=== PATIENT | female | born 1960 | race Caucasian/White ===

== ENCOUNTER 2022-12-13 05:24 | Day surgery (SDC) | payer BC, SELFPAY ==
[2022-12-13 05:53] VITALS: BP 106/63; PULSE 74; RESP 18; TEMP 36.9; O2SAT 100; BMI 29.3
[2022-12-13] MEDS: Lactated Ringers 1,000 ML 15 ML IV (06:00)
--- NOTE | 2022-12-13 06:30 | EGD_PTH ---
PATIENT: MAYRA PALUMBO LOC: EN U#:[id number] AGE/SX: 62/F ROOM: RE12/13/[address]: Dr. Norman Narvaez DO : 1960 BED: DIS: 12/13/2022 SPEC #: [id number] RECD: 12/13/22 10:22 STATUS: EVETTE RESofia #: [id number] HAL: 12/13/22 06:[address]: Norman Narvaez DEPT: SURGICAL PATHOLOGY RECD BY: Juju Huang ENTERED: 12/13/22 11:26 SP TYPE: EGD BIOPSY OT DR: Janey Bal PA-C Tissues: A - Esophagus, NOS B - Sigmoid colon biopsy Procedures: Special Stain Group II Surgery Specimen Level IV Alcian Blue/PAS (control) HEADER OPERATION: Colonoscopy, EGD (MAC), biopsy PRE-OP DIAGNOSIS: Acid reflux, dysphagia, screening TISSUE SUBMITTED: A ? Distal esophagus biopsy, B ? Sigmoid polyp biopsy MICROSCOPIC DIAGNOSIS A. Distal esophagus, biopsy: Fragments of gastric mucosa with moderate chronic inflammation. Intestinal metaplasia (goblet cell metaplasia) not identified. See comment. B. Sigmoid polyp, biopsy: Hyperplastic polyp. JUSTIN:kassidy 12/16/2022 COMMENT A. Alcian blue/PAS stain with matched control is used in the evaluation of the specimen. MICROSCOPIC DESCRIPTION Slides are reviewed. GROSS DESCRIPTION A - Received in fixative is one container labeled with the patient's name and designated distal esophagus. The specimen consists of multiple irregular fragments of light jules soft tissue that in aggregate measure 0.8 x 0.4 x 0.1 cm. The specimen is totally submitted in one cassette. B - Received in fixative is one container labeled with the patient's name and designated sigmoid polyp biopsy. The specimen consists of one irregular fragment of light jules soft tissue that measures 0.3 x 0.3 x 0.1 cm. The specimen is totally submitted in one cassette. / JUSTIN:kassidy 12/13/2022 TC:3 CPT: 19063 x2, 16760
--- NOTE | 2022-12-13 06:33 | HP.PCM_ITS ---
History and Physical Date of Admission: 12/13/22 62 F who presents to the office today to establish for dysphagia, acid reflux. No prior EGD or colonoscopy. Because of acid reflux she had to stop drinking coffee. Also stopped black pepper and garlic. Has stopped eating after 6 pm which has helped with reflux. No longer coughs now when she lies down. Jennie Se[place] helps, Pepto Bismol helps. Famotidine helps. She notes her reflux is worse the next day after taking any medication for it, and she doesn't want to have to take something every day. When she took famotidine routinely then her joints hurt more. Hasn't been on a PPI that she recalls. No nausea, vomiting. No abdominal pain. Has difficulty swallowing meat, started about 2 yrs ago, has gotten worse. She cuts food up into tiny pieces, followed by lots of water. Can intermittently have diarrhea, this has been fci. Bowels are more regular off probiotic, almost no diarrhea since stopping the probiotic . Went to an ED in 05/2022 for CP, they ruled out cardiac. Has a diagnosis of possible Sjogren's (Sjogren's antibody negative). Her Piece Maker is Dr Conrad in [place]. She takes hydroxychloroquine. Exam Const General: cooperative, healthy appearing and comfortable Orientation: alert, awake and oriented x3 HENMT Head: normal to inspection Eyes Sclera: sclerae normal Resp Effort & Inspection: normal respiratory effort GI Inspection: normal to inspection Skin General: no jaundice Neuro Gait: normal gait Quality Reporting Tobacco Screening ([facility] 138) Smoking Status: Never smoker Assessment and Plan Assessment and Plan (1) Acid reflux: ?Status:?Acute ?Plan: 62 yr old female with dysphagia and acid reflux. Dysphagia may be from chronic reflux and/or due to ?Sjogren's. Not currently on a PPI, prefers to avoid meds. She will have EGD and colonoscopy to eval for esophagitis, stricture, Clay's and screening colonoscopy F/u office 2 wks later to discuss biopsy results (2) Dysphagia: ?Status:?Acute ?Plan: see above (3) Screening for colon cancer: ?Status:?Acute ?Plan: see above I have examined the patient and the H&P has been reviewed. There are no clinical changes since date of exam.
[2022-12-13 07:05] VITALS: BP 103/65; BP 106/63; PULSE 67; RESP 16; TEMP 36.4; O2SAT 96
[2022-12-13 07:10] VITALS: BP 100/58; BP 106/63; PULSE 67; RESP 16; O2SAT 96
--- NOTE | 2022-12-13 07:13 | OP.EGD_ITS ---
Patient Name: Meenu Gant Procedure Date: 12/13/2022 6:24 AM Date of : 1960 Age: 62 Procedure: Upper GI endoscopy Indications: Heartburn, Suspected esophageal reflux Providers: Norman Narvaez DO Medicines: Monitored Anesthesia Care Patient Profile: This is a 62 year old female. Refer to note in patient chart for documentation of history and physical. Patient has symptoms of chronic heartburn. Complications: No immediate complications. Procedure: Pre-Anesthesia Assessment: - Prior to the procedure, a History and Physical was performed, and patient medications and allergies were reviewed. The risks and benefits of the procedure and the sedation options and risks were discussed with the patient. All questions were answered and informed consent was obtained. Patient identification and proposed procedure were verified by the physician in the pre-procedure area. Mental Status Examination: alert and oriented. Airway Examination: normal oropharyngeal airway and neck mobility. Respiratory Examination: clear to auscultation. CV Examination: normal. Prophylactic Antibiotics: The patient does not require prophylactic antibiotics. Prior Anticoagulants: The patient has taken no previous anticoagulant or antiplatelet agents. ASA Grade Assessment: II - A patient with mild systemic disease. After reviewing the risks and benefits, the patient was deemed in satisfactory condition to undergo the procedure. The anesthesia plan was to use moderate sedation / analgesia (conscious sedation). Immediately prior to administration of medications, the patient was re-assessed for adequacy to receive sedatives. The heart rate, respiratory rate, oxygen saturations, blood pressure, adequacy of pulmonary ventilation, and response to care were monitored throughout the procedure. The physical status of the patient was re-assessed after the procedure. After obtaining informed consent, the endoscope was passed under direct vision. Throughout the procedure, the patient's blood pressure, pulse, and oxygen saturations were monitored continuously. The Colonoscope was introduced through the mouth, and advanced to the second part of duodenum. The upper GI endoscopy was accomplished without difficulty. The patient tolerated the procedure well. Scope In: 6:40:29 AM Scope Out: 6:46:52 AM Total Procedure Duration Time 0 hours 6 minutes 23 seconds Findings: LA Grade B (one or more mucosal breaks greater than 5 mm, not extending between the tops of two mucosal folds) esophagitis with no bleeding was found 37 to 38 cm from the incisors. Biopsies were taken with a cold forceps for histology. Verification of patient identification for the specimen was done. Estimated blood loss was minimal. A small hiatal hernia was present. The cardia and gastric fundus were normal on retroflexion. No other significant abnormalities were identified in a careful examination of the stomach. No gross lesions were noted in the second portion of the duodenum. Impression: - LA Grade B reflux esophagitis. Biopsied. - Small hiatal hernia. - No gross lesions in the second portion of the duodenum. Recommendation: - Discharge patient to home. - Resume previous diet. - Continue present medications. - Await pathology results. Procedure Code(s): --- Professional --- 92423, Esophagogastroduodenoscopy, flexible, transoral; with biopsy, single or multiple CPT copyright 2017 [employer]. All rights reserved. The codes documented in this report are preliminary and upon caul puller review may be revised to meet current compliance requirements. Norman Narvaez DO 12/13/2022 7:12:19 AM This report has been signed electronically. Number of Addenda: 0 Note Initiated On: 12/13/2022 6:24 AM
--- NOTE | 2022-12-13 07:13 | OP.CCLET_ITS ---
12/13/2022 Janey Bal Re : Upper GI endoscopy procedure for Meenu Bal This procedure was performed on Tuesday, December 13, 2022. My impressions and recommendations are as follows: Impressions : - LA Grade B reflux esophagitis. Biopsied. - Small hiatal hernia. - No gross lesions in the second portion of the duodenum. Recommendations : - Discharge patient to home. - Resume previous diet. - Continue present medications. - Await pathology results. My findings are described in the full procedure note, which is enclosed. If I can be of further assistance, please feel free to contact me at . Sincerely, Norman Narvaez, 12/13/2022 7:12:19 AM This report has been signed electronically.
[2022-12-13 07:15] VITALS: BP 106/63; BP 95/69; PULSE 64; RESP 15; O2SAT 96
--- NOTE | 2022-12-13 07:15 | OP.COLON_ITS ---
Patient Name: Meenu Gant Procedure Date: 12/13/2022 6:47 AM Date of : 1960 Age: 62 Procedure: Colonoscopy Indications: Screening for colorectal malignant neoplasm Providers: Norman Narvaez DO Medicines: Monitored Anesthesia Care Patient Profile: This is a 62 year old female. Refer to note in patient chart for documentation of history and physical. Patient has symptoms of chronic heartburn. Last Colonoscopy: none. The patient's first colonoscopy is today. Complications: No immediate complications. Procedure: Pre-Anesthesia Assessment: - Prior to the procedure, a History and Physical was performed, and patient medications and allergies were reviewed. The risks and benefits of the procedure and the sedation options and risks were discussed with the patient. All questions were answered and informed consent was obtained. Patient identification and proposed procedure were verified by the physician in the pre-procedure area. Mental Status Examination: alert and oriented. Airway Examination: normal oropharyngeal airway and neck mobility. Respiratory Examination: clear to auscultation. CV Examination: normal. Prophylactic Antibiotics: The patient does not require prophylactic antibiotics. Prior Anticoagulants: The patient has taken no previous anticoagulant or antiplatelet agents. ASA Grade Assessment: II - A patient with mild systemic disease. After reviewing the risks and benefits, the patient was deemed in satisfactory condition to undergo the procedure. The anesthesia plan was to use moderate sedation / analgesia (conscious sedation). Immediately prior to administration of medications, the patient was re-assessed for adequacy to receive sedatives. The heart rate, respiratory rate, oxygen saturations, blood pressure, adequacy of pulmonary ventilation, and response to care were monitored throughout the procedure. The physical status of the patient was re-assessed after the procedure. After I obtained informed consent, the scope was passed under direct vision. Throughout the procedure, the patient's blood pressure, pulse, and oxygen saturations were monitored continuously. The Colonoscope was introduced through the anus and advanced to the cecum, identified by appendiceal orifice and ileocecal valve. The colonoscopy was performed without difficulty. The patient tolerated the procedure well. The quality of the bowel preparation was good. Scope In: 6:49:37 AM Scope Withdrawal Time 0 hours 8 minutes 25 seconds Scope Out: 7:02:51 AM Total Procedure Duration Time 0 hours 13 minutes 14 seconds Findings: The perianal and digital rectal examinations were normal. A few small-mouthed diverticula were found in the recto-sigmoid colon and sigmoid colon. A 2 mm polyp was found in the sigmoid colon. The polyp was sessile. The polyp was removed with a jumbo cold forceps. Resection and retrieval were complete. The exam was otherwise without abnormality on direct and retroflexion views. Impression: - Diverticulosis in the recto-sigmoid colon and in the sigmoid colon. - One 2 mm polyp in the sigmoid colon, removed with a jumbo cold forceps. Resected and retrieved. - The examination was otherwise normal on direct and retroflexion views. Recommendation: - Discharge patient to home. - Resume previous diet. - Continue present medications. - Await pathology results. - Repeat colonoscopy in 5 years for surveillance. Procedure Code(s): --- Professional --- 15348, Colonoscopy, flexible; with biopsy, single or multiple CPT copyright 2017 [employer]. All rights reserved. The codes documented in this report are preliminary and upon director of operations for therapy review may be revised to meet current compliance requirements. Norman Narvaez DO 12/13/2022 7:15:03 AM This report has been signed electronically. Number of Addenda: 0 Note Initiated On: 12/13/2022 6:47 AM
--- NOTE | 2022-12-13 07:15 | OP.CCLET_ITS ---
12/13/2022 Janey Bal Re : Colonoscopy procedure for Meenu Bal This procedure was performed on Tuesday, December 13, 2022. My impressions and recommendations are as follows: Impressions : - Diverticulosis in the recto-sigmoid colon and in the sigmoid colon. - One 2 mm polyp in the sigmoid colon, removed with a jumbo cold forceps. Resected and retrieved. - The examination was otherwise normal on direct and retroflexion views. Recommendations : - Discharge patient to home. - Resume previous diet. - Continue present medications. - Await pathology results. - Repeat colonoscopy in 5 years for surveillance. My findings are described in the full procedure note, which is enclosed. If I can be of further assistance, please feel free to contact me at . Sincerely, Norman Friend, 12/13/2022 7:15:03 AM This report has been signed electronically.
[2022-12-13 07:20] VITALS: BP 105/72; BP 106/63; PULSE 64; RESP 16; TEMP 36.3; O2SAT 97
[2022-12-13 07:55] VITALS: BP 106/63
== END 2022-12-13 08:11 | disposition home or self-care (01) ==
LOC: EN 05:26 → AC 05:29
PROVIDERS: PCP Family Medicine; Referring Provider Family Medicine; Visit Provider Internal Medicine Gastroenterology
PROC: 0DJD8ZZ Inspection of Lower Intestinal Tract, Via Natural or Artificial Opening Endoscopic (ICD-10-PCS; CPT 45378; principal; 2022-12-13 06:25)
DX: Z12.11 Encounter for screening for malignant neoplasm of colon (principal); K21.00 Gastro-esophageal reflux disease with esophagitis, without bleeding; K44.9 Diaphragmatic hernia without obstruction or gangrene; K57.30 Diverticulosis of large intestine without perforation or abscess without bleeding; K63.5 Polyp of colon
CPT/HCPCS: 45380; 43239; 88305; 88313; J7120; J2405

== ENCOUNTER → 2023-12-17 | Outpatient (CLI) | payer OTHER, SELFPAY ==
[2023-12-17 17:17] LABS: ALB/GLOB Ratio 1.1 RATIO (0.9-2.4); AST(SGOT) 18 U/L (15-37); Alanine Aminotransfer ALT/SGPT 28 U/L (13-56); Albumin, Serum 3.8 g/dL (3.2-5.0); Alkaline Phosphatase 58 U/L (45-117); Anion Gap 8 (5-15); BUN 11 mg/dL (7-18); BUN/Creat Ratio 11.8 RATIO (10-20); Calcium,Total 9.3 mg/dL (8.5-10.1); Chloride 106 mmol/L (98-107); Cholesterol 226 mg/dL (200); Creatinine, Serum 0.94 mg/dL (0.55-1.02); EST Glomerular Filtration Rate 65 mL/min (>60); Est Glom Filt Rate - Afr Amer 78 mL/min (>60); Globulin 3.4 g/dL (2.2-4.2); Glucose 96 mg/dL (74-106); High Density Lipoprotein 56 mg/dL; Potassium 4.1 mmol/L (3.5-5.1); Protein, Total 7.2 g/dL (6.4-8.2); Sodium Level 141 mmol/L (136-145); Triglycerides 181 mg/dL; Very Low Density Lipoprotein 36 mg/dL (5-40)
[2023-12-17 17:20] LABS: Erythrocyte Sedimentation Rate 4 mm/hr (0-30)
--- OUTSIDE RECORDS SUMMARY | 2023-12-17 22:11 | XMS RPT_ITS | CCD ---
Author Name Unknown Address [address] [place] [address] Organization [facility] Care Team Providers Care Baggage Inspector Name Role Phone JACOB HAYWOOD Referring Unavailable JACOB HAYWOOD Consulting Unavailable EVETTE SPENCE MD Admitting Unavailable EVETTE SPENCE MD Attending Unavailable EVETTE SPENCE MD Primary Care Unavailable PROVIDER, UNKNOWN Consulting Unavailable JACOB HAYWOOD Admitting Unavailable JACOB HAYWOOD Attending Unavailable JACOB HAYWOOD Primary Care Unavailable JACOB HAYWOOD Consulting Unavailable PROVIDER, UNKNOWN Consulting Unavailable BISHNU PAT Admitting Unavailable BISHNU PAT Attending Unavailable ADILIA BISHNU Primary Care Unavailable DOT HAYWOODBERLY Consulting Unavailable PROVIDER, UNKNOWN Consulting Unavailable BISHNU PAT Attending Unavailable JACOB VIVEROS Primary Care Unavailable ADILIA BISHNU Admitting Unavailable BISHNU PAT Attending Unavailable ADILIA BISHNU Admitting Unavailable ADILIA, BISHNU Primary Care Unavailable Allergies Allergy Classification Reported Allergen(s) Allergy Type Date of Onset Reaction(s) Facility (1 source) Penicillins Drug allergy (disorder) [facility] (1 source) Sulfonamides (Antibiotic) Drug allergy (disorder) [facility] Problems Problem Classification Problem Date Documented Date Episodic/Chronic Nutritional deficiencies (3 sources) Vitamin D deficiency, unspecified; Translations: [Vitamin D deficiency, unspecified] Onset: 05-09-2022 Chronic Osteoarthritis (1 source) Primary generalized (osteo)arthritis; Translations: [Primary generalized (osteo)arthritis] Onset: 05-09-2022 Chronic Other connective tissue disease (1 source) Other specified enthesopathies of right lower limb, excluding foot; Translations: [Other specified enthesopathies of right lower limb, excluding foot] Onset: 05-09-2022 Episodic Systemic lupus erythematosus and connective tissue disorders (2 sources) Systemic involvement of connective tissue, unspecified; Translations: [SYSTEMIC INVLV CONNECTIVE TISS UNS] Onset: 05-14-2023 Chronic Results Test Name Value Interpretation Reference Range Facil ity Encounters Encounter Date Encounter Type Care Provider Facility Start: 05-13-2023 End: 05-14-2023 ambulatory [facility] Start: 10-30-2022 End: 10-31-2022 ambulatory [facility] Start: 05-20-2022 End: 05-21-2022 ambulatory [facility] Start: 05-09-2022 End: 05-09-2022 ambulatory [facility] Start: 08-16-2021 End: 08-16-2021 ambulatory [facility] Payers Date Payer Category Payer Unknown [id number] [id number] [id number] 1960 Unknown [id number] 2.16.84 [id number] 1960 Unknown [id number] 2.16.84 [id number] 1960 Unknown [id number] 2.16.8 [id number] 1960 Unknown [id number] 2.16.8 [id number] 1958 Unknown [id number] Unknown [id number] Summary Purpose Family History No Family History Records FoundNo Family History Records Found Advance Directives No Advanced Directives Records FoundNo Advanced Directives Records Found Additional Source Comments INFORMATION SOURCE (unrecogn ized section and content) DATE CREATED AUTHOR AUTHOR'S STEPHANIE SANTIAGO 05/15/2023 [facility] FOR RECORDS PERTAINING TO PATIENTS WHO ARE OR HAVE BEEN ENROLLED IN A CHEMICAL DEPENDENCY/SUBSTANCEABUSE PROGRAM, SOME INFORMATION MAY BE OMITTED. This clinical summary was aggregated from multiple sources. Caution should be exercised in using it in the provision of clinical care. This summary normalizes information from multiple sources, and as a consequence, information in this document may materially change the coding, format and clinical context of patient data. In addition, data may be omitted in some cases. CLINICAL DECISIONS SHOULD BE BASED ON THE PRIMARY CLINICAL RECORDS. [facility] [employer] [facility]. provides no warranty or guarantee of the accuracy or completeness of information in this document.
[2023-12-19 04:07] LABS: Complement C3 121 mg/dL (82-167)
== END | disposition home or self-care (01) ==
LOC: BIMLAB 15:04
PROVIDERS: PCP Family Medicine; Visit Provider Family Medicine
DX: M35.9 Systemic involvement of connective tissue, unspecified (principal); Z13.1 Encounter for screening for diabetes mellitus; Z13.6 Encounter for screening for cardiovascular disorders
CPT/HCPCS: 36415; 80053; 80061; 85652; 86160

== ENCOUNTER → 2023-12-30 | Outpatient (CLI) | payer OTHER, SELFPAY ==
--- NOTE | 2023-12-30 09:46 | CDU_ITS ---
Reason For Study: bruit Rt. Velocities/BP Lt. Velocities/BP Prox CCA 96.0/22.3 cm/sec. Prox CCA 103.5/20.0 cm/sec. Mid CCA 98.1/22.3 cm/sec. Mid CCA 109.7/23.7 cm/sec. Dist CCA 98.1/22.3 cm/sec. Dist CCA 92.5/22.5 cm/sec. Prox ICA 47.6/12.4 cm/sec. Prox ICA 76.5/17.6 cm/sec. Mid ICA 68.5/26.7 cm/sec. Mid ICA 92.5/24.9 cm/sec. Dist ICA 69.5/22.8 cm/sec. Dist ICA 86.3/32.3 cm/sec. Rt. ICA/CCA = .7. Lt. ICA/CCA = .8. Prox ECA 99.2/14.6 cm/sec. Prox ECA 59.3/15.1 cm/sec. Rt. Vert. 36.6/9.1 cm/sec. Lt. Vert. 55.3/19.0 cm/sec. Right Extracranial There is intimal thickening but no significant atherosclerotic plaque noted in the right common carotid artery. There is intimal thickening but no significant atherosclerotic plaque noted in the right internal carotid artery. There is intimal thickening but no significant atherosclerotic plaque noted in the right external carotid artery. Abnormal waveform morphology noted in the right vertebral artery. Left Extracranial There is intimal thickening but no significant atherosclerotic plaque noted in the left common carotid artery. There is intimal thickening but no significant atherosclerotic plaque noted in the left internal carotid artery. There is intimal thickening but no significant atherosclerotic plaque noted in the left external carotid artery. Antegrade flow is noted in the left vertebral artery. Procedure Carotid Duplex 27567. This is a Carotid Duplex examination using B-mode, color flow and specral Doppler. The exam was diagnostic. Exam performed in department. VL/Carotid Duplex Ultrasound Interpretation Summary No significant atherosclerotic plaque or stenosis noted in the internal carotid arteries bilaterally. An abnormal waveform morphology is noted in the right vertebral ar douglas, which is suggestive of a right subclavian artery stenosis, with a subclavian steal or pr e-steal phenomenon. Flow within the left vertebral artery is antegrade. Ordering Physician: Thomas Fonseca Referring Physician: Thomas Fonseca Performed By: Kentrell Ramirez RVT
== END | disposition home or self-care (01) ==
LOC: CVS 09:46
PROVIDERS: PCP Physician Assistant; Referring Provider Physician Assistant; Visit Provider Physician Assistant
DX: R09.89 Other specified symptoms and signs involving the circulatory and respiratory systems (principal)
CPT/HCPCS: 93880

== ENCOUNTER → 2024-12-23 | Outpatient (CLI) | payer OTHER, SELFPAY ==
--- NOTE | 2024-12-23 14:45 | BI_ITS ---
EXAM: SCRN MAMM (CAD)W/BRADLY BILAT DATE: 12/23/2024 CLINICAL HISTORY: F, Age 64 y/o , SCREENING. History of aunt with breast cancer. BREAST CANCER RISK ASSESSMENT: Not assessed. TECHNIQUE: Bilateral screening digital breast tomosynthesis with 2D and 3D images. Computer aided detection. COMPARISON: Prior exam(s) dated outside examination dated August 16, 2021.. FINDINGS: TISSUE DENSITY: The breast tissue is heterogenously dense, which may obscure small masses. Bilateral Breast Mammographic Findings: No significant masses, calcifications or other abnormalities are identified. No suspicious masses, areas of developing architectural distortion, or suspicious calcifications. There has been no significant interval change. BI/SCRN MAMM (CAD)W/BRADLY BILAT IMPRESSION: Right Breast: BIRADS 1 NEGATIVE. Left Breast: BIRADS 1 NEGATIVE. OVERALL FINAL ASSESSMENT: BIRADS 1 NEGATIVE RECOMMENDATION: Routine annual follow-up in 1 Year A letter with findings and recommendations will be mailed to the patient. Reading Location: [place] [id number]
[2024-12-23 15:32] LABS: Absolute Lymphocyte Count 1.92 X10^3/uL (0.83-4.51); Basophil# 0.07 X10^3/uL; Basophil% 0.9 % (0-1); Eosinophil# 0.21 X10^3/uL; Eosinophils% 2.6 % (0-5); Hematocrit 44.3 % (37-47); Hemoglobin 14.8 g/dL (12.0-15.0); Lymphocyte # 1.92 X10^3/ul (0.83-4.51); Lymphocyte % 24.1 % (19-41); Mean Corp Hgb Conc 33.4 g/dL (32-36); Mean Corpuscular Hgb 28.7 pg (27.0-32.0); Mean Platelet Vol. 10.5 fl (6.2-12.0); Monocyte# 0.73 X10^3/uL; Monocyte% 9.2 % (0-10); NRBC Flagged by Analyzer 0 % (0-5); Neutrophil # 4.98 X10^3/uL (2.7-7.7); Neutrophil % 62.4 % (47-70); Platelet Count 296 K/mm3 (150-450); RBC Distribution Width SD 40.9 fl (35.1-43.9); Red Blood Count 5.15 M/mm3 (4.2-5.4)
[2024-12-23 15:42] LABS: Erythrocyte Sedimentation Rate 4 mm/hr (0-30)
[2024-12-23 21:10] LABS: ALB/GLOB Ratio 1.4 RATIO (0.9-2.4); AST(SGOT) 20 U/L (<=31); Alanine Aminotransfer ALT/SGPT 31 U/L (<=34); Albumin, Serum 4.1 g/dL (3.4-4.8); Alkaline Phosphatase 57 U/L (35-104); Anion Gap 12 (5-15); BUN 15 mg/dL (4-19); BUN/Creat Ratio 16.7 RATIO (10-20); Calcium,Total 9.4 mg/dL (7.6-11.0); Carbon Dioxide 22.1 mmol/L (21.0-32.0); Chloride 103 mmol/L (98-108); Cholesterol 225 mg/dL (<=200); EST Glomerular Filtration Rate 72 (>60); Globulin 2.8 g/dL (2.2-4.2); Glucose 82 mg/dL (70-99); High Density Lipoprotein 60 mg/dL; Low Density Lipoprotein Calc. 142 mg/dL; Potassium 4.2 mmol/L (3.3-5.1); Protein, Total 6.9 g/dL (5.9-8.4); Sodium Level 137 mmol/L (133-145); Total Bilirubin 0.35 mg/dL (0.00-1.30); Triglycerides 115 mg/dL; Very Low Density Lipoprotein 23 mg/dL (5-40); Vitamin D,25 Hydroxy 35.3 ng/mL (30-100); cholesterol:hdl ratio screen 3.77
[2024-12-25 05:07] LABS: Complement C3 118 mg/dL (82-167)
== END | disposition home or self-care (01) ==
PROVIDERS: Registered Nurse; PCP Physician Assistant; Referring Provider Physician Assistant; Visit Provider Physician Assistant
DX: Z00.00 Encounter for general adult medical examination without abnormal findings (principal); M06.4 Inflammatory polyarthropathy; Z12.31 Encounter for screening mammogram for malignant neoplasm of breast; Z80.3 Family history of malignant neoplasm of breast; M35.9 Systemic involvement of connective tissue, unspecified
CPT/HCPCS: 36415; 77063; 77067; 80053; 80061; 82306; 84443; 85025; 85652; 86160

== ENCOUNTER → 2025-01-04 | Outpatient (CLI) | payer OTHER, SELFPAY ==
--- NOTE | 2025-01-04 14:55 | BD_ITS ---
PROCEDURE: DEXA BONE DENSITY STUDY REASON FOR EXAM: None provided TECHNIQUE: DEXA scan of the lumbar spine and bilateral hips, using a Hologic Horizon W unit. REFERENCE LINKS: ISCD Adult Positions COMPARISON: None FINDINGS: LUMBAR SPINE: Bone mineral denisty, L1-L4: 1.086 g/cm???, potentially elevated by hypertrophic bony degenerative changes. T-score: 0.4 LEFT FEMORAL NECK: Bone mineral denisty: 0.794 g/cm??? T-score: -0.5 LEFT TOTAL HIP: Bone mineral denisty: 0.908 g/cm??? T-score: -0.3 RIGHT FEMORAL NECK: Bone mineral denisty: 0.762 g/cm??? T-score: -0.8 RIGHT TOTAL HIP: Bone mineral denisty: 0.864 g/cm??? T-score: -0.6 FRAX*: 10 Year Probability of Fracture: Major Osteoporotic Fracture(1): 7.3% Hip Fracture(2): 0.4% *FRAX is a trademark of the [employer]'s [employer] for Metabolic Bone Disease, World Health Organization (WHO) Collaborating Sawyer. 1-Major Osteoporotic Fracture: Clinical Spine, Forearm, Hip or Shoulder. 2-The 10-year probability of fracture may be lower than reported if the patient has received treatment. BD/Dexa Bone Density Study IMPRESSION: 1. Bone mineral denisty is low normal. 2. No prior exams are available for comparison. 3. Additional description as above. Reading Location: [id number]
== END | disposition home or self-care (01) ==
LOC: OPBD 14:54
PROVIDERS: PCP Physician Assistant; Referring Provider Registered Nurse; Visit Provider Registered Nurse
DX: E55.9 Vitamin D deficiency, unspecified (principal)
CPT/HCPCS: 77080